=== PATIENT | female | born 1950 ===

== ENCOUNTER → 2016-07-18 | Outpatient (CLI) | payer MEDICARE ==
--- NOTE | 2016-07-18 14:44 | RAD ---
EXAM DESCRIPTION: Knee,Right Complete CLINICAL HISTORY: 66 years Female, RT KNEE PAIN COMPARISON: None. FINDINGS: 3 views of the right knee show no acute fracture or malalignment. There is no definite right knee joint effusion. Minimal medial joint space narrowing. No retained foreign body or soft tissue gas. IMPRESSION: Minimal medial joint space narrowing in the right knee, otherwise unremarkable exam. Electronically signed by: Abilio Biswas MD 07/18/2016 2:43 PM [employer]
--- NOTE | 2016-07-18 14:53 | MRI ---
Study: MRI of the Right Knee. Indication: RT KNEE PAIN Technique: Multiplanar, multi sequence MRI of the right knee was obtained without intravenous contrast. Comparison: Radiographs from the same day. Findings: ACL, PCL, and lateral collateral ligament complex intact. Grade 1/2 MCL sprain with bowing and surrounding edema as well as mild increased internal PD signal. Small knee effusion. Tiny Cevallos's cyst. In the posterior margin lateral femoral condyle there is a small 11 mm focus of suspected osteonecrosis. Radial free edge tearing posterior horn and body medial meniscus with 2 mm of extrusion of the body. In addition there is small undersurface flap tear at the junction posterior horn and body with displacement of the flap fragment into meniscotibial gutter as noted on the coronal imaging. Radial free edge tearing body lateral meniscus. Areas of grade 2/3 chondral thinning and surface irregularity throughout the medial and lateral knee compartments with minimal grade 4 chondral loss and subchondral marrow change posteromedial margin medial tibial plateau. Patellofemoral extensor mechanism intact. Trace lateral patellar tilt and subluxation. Irregular grade 3/4 chondral loss medial patellar facet and apex as well as medial and midline femoral trochlea. Impression: Complex multidirectional tearing medial meniscus. Radial free edge tearing body lateral meniscus. Grade 1/2 MCL sprain. 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 Small focus osteonecrosis posterior margin lateral femoral condyle. Additional findings as above. Electronically signed by: Cyril Tellez MD 07/18/2016 2:52 PM [employer] REPORT WRITER
== END | disposition home or self-care (01) ==
LOC: MRI 11:05
PROVIDERS: ATTEND Family Medicine
DX: S83.241A Other tear of medial meniscus, current injury, right knee, initial encounter (principal); M25.461 Effusion, right knee